=== PATIENT | male | born 1990 ===

== ENCOUNTER 2018-01-05 16:49 | Emergency (ER) | payer SELFPAY ==
[2018-01-05] MEDS ORDERED: Diazepam 5 MG TAB ONE (17:16)
[2018-01-05] MEDS ORDERED: Ketorolac Tromethamine 60 MG/2 ML VIAL ONE (17:16)
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
== END 2018-01-05 18:11 | disposition home or self-care (01) ==
LOC: ERS 16:49
DX: S39.012A Strain of muscle, fascia and tendon of lower back, initial encounter (principal); V43.62XA Car passenger injured in collision with other type car in traffic accident, initial encounter
CPT/HCPCS: 72100; 96372; J1885